=== PATIENT | male | born 1995 | race Caucasian/White ===

== ENCOUNTER 2018-02-19 16:01 | Emergency (ER) | payer BC ==
[~2018-02-19] VITALS: Ht 180.3 cm; Wt 86.3 kg
[~2018-02-19 16:01] MED LIST: Baciguent TP
[2018-02-19 16:51] LABS: HEMATOCRIT 43.1 % (38.0-50.0); HEMOGLOBIN 15.3 G/DL (12.5-16.6); MCH 33.1 PG (29.0-34.0); MCHC 35.5 G/DL (30.0-36.0); MCV 93.3 FL (86-99); PLATELET COUNT 190 K/uL (156-360); RBC DIS.WIDTH-SD 41.3 % (39-53); RED BLOOD COUNT 4.62 M/uL (4.00-5.50); WHITE BLOOD COUNT 11.5 K/uL (4.1-10.2)
[2018-02-19 17:00] LABS: CHLORIDE 108 mEq/L (99-109); POTASSIUM 3.4 mEq/L (3.7-5.4); SODIUM 142 mEq/L (136-147)
[2018-02-19 17:02] LABS: GLUCOSE 104 mg/dL (70-99)
[2018-02-19 17:06] LABS: GFR ESTIMATE (CALCULATED) > 59 mL/min/ (58.99-99999)
[2018-02-19 17:07] LABS: UREA NITROGEN (BUN) 16 mg/dL (9-23)
[2018-02-19] MEDS ORDERED: MOTRIN600 MG PO (18:44)
[2018-02-19] MEDS ORDERED: ULTRAM50 MG PO (18:44)
[2018-02-19] MEDS ORDERED: KEFLEX500 MG PO (18:44)
[2018-02-19 19:09] VITALS: BP 132/68
== END 2018-02-19 19:10 | disposition home or self-care (01) ==
LOC: EME 16:01
PROVIDERS: Emergency Medicine
PROC: 0HQHXZZ Repair Right Upper Leg Skin, External Approach (ICD-10-PCS; principal; 2018-02-19)
DX: S71.111A Laceration without foreign body, right thigh, initial encounter (principal); V86.56XA Driver of dirt bike or motor/cross bike injured in nontraffic accident, initial encounter; F17.200 Nicotine dependence, unspecified, uncomplicated
CPT/HCPCS: 73590; 80048; 85027; 99281; 99285; J0690; J7040